=== PATIENT | male | born 1950 | race Caucasian/White ===

== ENCOUNTER 2023-11-29 11:11 | Outpatient (CLI) | payer MEDICARE | END 2023-11-29 11:12 | disposition home or self-care (01) | LOC: CSHWCC 11:11 | PROVIDERS: ATTEND Nurse Practitioner Family | DX: T81.31XD Disruption of external operation (surgical) wound, not elsewhere classified, subsequent encounter (principal); J84.10 Pulmonary fibrosis, unspecified | CPT/HCPCS: 11042 ==

== ENCOUNTER 2023-12-06 11:39 | Outpatient (CLI) | payer MEDICARE | END 2023-12-06 11:40 | disposition home or self-care (01) | LOC: CSHWCC 11:39 | PROVIDERS: ATTEND Preventive Medicine Undersea and Hyperbaric Medicine | DX: T81.31XD Disruption of external operation (surgical) wound, not elsewhere classified, subsequent encounter (principal); J84.10 Pulmonary fibrosis, unspecified | CPT/HCPCS: 99212; G0463 ==